=== PATIENT | female | born 2000 | race Caucasian/White ===

== ENCOUNTER 2021-01-23 17:43 | Emergency (ER) | payer OTHER, SELFPAY ==
[2021-01-23 17:57] VITALS: BP 126/83; PULSE 56; RESP 16; TEMP 36.8; O2SAT 100
--- NOTE | 2021-01-23 18:04 | ED.DIZZY ---
HPI - Dizziness General Chief Complaint: Ear Stated Complaint: Nausea,Dizzy Time Seen by Provider: 01/23/21 18:25 Source: patient and RN notes reviewed Mode of arrival: ambulatory Limitations: no limitations History of Present Illness HPI Narrative: 20-year-old female presents with concern for right ear pain, rhinorrhea, left-sided nasal congestion. Reports today an episode of dizziness and nausea. She denies fever, body aches, chills, sweats, cough, shortness of breath. She denies any known sick contacts. MD elicited complaint: other (Ear pain) Related Data Home Medications Medication Instructions Recorded Confirmed norethindrone-e.estradiol-iron tablet 01/23/21 [10/13 (28)] Allergies Allergy/AdvReac Type Severity Reaction Status Date / Time No Known Allergies Allergy Unverified 11/11/15 16:28 Review of Systems Review of Systems: Narrative: CONSTITUTIONAL: Denies malaise, chills, sweats, or fever. EYES: Denies visual changes, redness, or discharge. ENT: Reports rhinorrhea, congestion, right-sided ear pain. Sinus pain and sore throat. CARDIOVASCULAR: Denies chest pain, palpitations, or edema. RESPIRATORY: Denies cough or dyspnea. GASTROINTESTINAL: Denies abdominal pain, vomiting, diarrhea. Reports one episode of nausea. SKIN: Denies rash or itching. MUSCULOSKELETAL: Denies myalgia. NEUROLOGIC: Denies headache. Reports one episode of dizziness associated with nausea All systems reviewed & are unremarkable except as noted in HPI and below PMFSH Family History Family History (Updated 11/14/18 @ 14:56 by DOCTOR UNKNOWN) Mother Patient's mother is in good health Sibling Patient's sister is in good health Patient's brother is in good health Social History Social History Smoking status: Never smoker Alcohol intake: never Comments At time of signature, agree with nursing past medical, surgical, social and family history. There is no relevant family history pertinent to the presenting complaint Exam Narrative: Exam Narrative: GENERAL: Well-appearing, well-nourished, and in no acute distress. HEAD: Normocephalic EYES: PERRLA, conjunctivae clear ENT: Nares clear, turbinates edematous and erythematous, clear discharge. Mucous membranes moist. TM pearly madrid with dull light reflex bilaterally; no tragal tenderness. Oropharynx mildly erythematous without lesions. Tonsils not enlarged and without exudate, no drooling, no hoarseness, no trismus, uvula midline. NECK: Supple. No lymphadenopathy CHEST: Clear to auscultation, breath sounds equal. No wheezing, rhonchi, rales, or stridor. No respiratory distress, speaks in full sentences. HEART: Regular rate and rhythm. No murmur heard. SKIN: Warm, dry, no rash. NEURO: Alert and oriented x3. No focal deficits PSYCH: Normal mood and affect Course Course Emergency Course: Patient is aware of diagnosis, understands and agrees to treatment plan. Anticipatory guidance given. Patient agrees to follow-up as directed and is aware of reasons to seek care at the emergency department. Portions of this record may have been created with voice recognition software Vital Signs Vital signs: Vital Signs Temperature 98.3 F 01/23/21 17:57 Pulse Rate 56 L 01/23/21 17:57 Respiratory Rate 16 01/23/21 17:57 Blood Pressure 126/83 01/23/21 17:57 Pulse Oximetry 100 01/23/21 17:57 Temperature 98.3 F 01/23/21 17:57 Pulse Rate 56 L 01/23/21 17:57 Respiratory Rate 16 01/23/21 17:57 Blood Pressure 126/83 01/23/21 17:57 Pulse Oximetry 100 01/23/21 17:57 Reviewed. MDM - Dizziness MDM Narrative Medical decision making narrative: Differential diagnosis considered: Yadav virus, strep pharyngitis, allergic rhinitis, upper respiratory tract infection, sinusitis, rhinosinusitis, nasopharyngitis. viral pharyngitis, otitis media, otitis externa, pneumonia, bronchitis, viral cough syndrome, viral syndrome, and influenza. Exam findings show no a
== END 2021-01-23 18:47 | disposition home or self-care (01) ==
PROVIDERS: Emergency Provider Nurse Practitioner
DX: J06.9 Acute upper respiratory infection, unspecified (principal)
CPT/HCPCS: 87081; 87880; 99213; G0463